=== PATIENT | female | born 1990 | race Caucasian/White ===

== ENCOUNTER 2016-11-05 12:31 | Outpatient (CLI) | payer OTHER | END 2016-11-05 23:59 | DX: Z34.83 Encounter for supervision of other normal pregnancy, third trimester (principal) ==

== ENCOUNTER 2016-11-11 09:17 | Outpatient (CLI) | payer OTHER | END 2016-11-11 11:35 | disposition home or self-care (01) | DX: O23.43 Unspecified infection of urinary tract in pregnancy, third trimester (principal); Z3A.35 35 weeks gestation of pregnancy ==

== ENCOUNTER 2016-12-09 05:25 | Inpatient (IN) | payer OTHER ==
[2016-12-09] MEDS ORDERED: fentaNYL 100 MCG/2 ML VIAL IVP PRN (06:56)
[2016-12-09] MEDS ORDERED: ONDANSETRON 4 MG/2 ML VIAL IVP PRN ×2 (06:56→17:47)
[2016-12-09] MEDS ORDERED: OXYTOCIN/LACTATED RINGERS 250 ML IV SCH (08:00)
[2016-12-09] MEDS: LACTATED RINGERS 1,000 ML IV SCH ×3 (10:23→20:46)
[2016-12-09] MEDS ORDERED: SODIUM CHLORIDE FLUSH 0.9% 10 ML SYRINGE IVP ONE (16:22)
[2016-12-09] MEDS ORDERED: NALOXONE 0.4 MG/ML VIAL IVP PRN (17:47)
[2016-12-09] MEDS ORDERED: diphenhydrAMINE INJ 50 MG/ML VIAL IVP PRN (17:47)
[2016-12-09] MEDS ORDERED: LACTATED RINGERS 500 ML IV ONE (17:47)
[2016-12-09] MEDS ORDERED: METOCLOPRAMIDE 10 MG/2 ML VIAL IVP PRN (17:47)
[2016-12-09] MEDS ORDERED: NALBUPHINE 20 MG/ML AMP IVP PRN (17:47)
[2016-12-09] MEDS ORDERED: ePHEDrine 50 MG/ML AMP IVP PRN (17:47)
[2016-12-09] MEDS ORDERED: SUFENTA/BUPIV 0.4 MCG/0.0625% EPIDURAL 150 ML EP PRN (17:47)
[2016-12-09] MEDS ORDERED: DINOPROSTONE 10 MG SUPP VG SCH (18:23)
[2016-12-09] MEDS ORDERED: METOCLOPRAMIDE 10 MG/2 ML VIAL IVP ONE (20:00)
[2016-12-09] MEDS ORDERED: ePHEDrine 50 MG/ML AMP IVP ONE (20:00)
[2016-12-09] MEDS ORDERED: LIDOCAINE-MPF 2% 5 ML VIAL IM ONE (20:00)
[2016-12-09] MEDS ORDERED: ONDANSETRON 4 MG/2 ML VIAL IVP ONE (20:00)
[2016-12-09] MEDS ORDERED: CARBOPROST TROMETHAMINE 250 MCG/ML AMP IM ONE (20:00)
[2016-12-09] MEDS ORDERED: fentaNYL 100 MCG/2 ML VIAL IVP ONE (20:00)
[2016-12-09] MEDS ORDERED: OXYTOCIN 10 UNIT/ML VIAL IV ONE (20:00)
[2016-12-09] MEDS ORDERED: MORPHINE PF 5 MG/10 ML AMP EP ONE (20:00)
[2016-12-09] MEDS ORDERED: PHENYLEPHRINE 10 MG/ML VIAL IV ONE (20:00)
[2016-12-09] MEDS ORDERED: ROPIVACAINE 0.2% PF 10 ML VIAL EPI ONE (20:00)
[2016-12-10] MEDS ORDERED: SUFENTA/BUPIV 0.4 MCG/0.0625% EPIDURAL 150 ML EP PRN (05:23)
[2016-12-10] MEDS: LACTATED RINGERS 1,000 ML IV SCH ×2 (06:30→18:18)
[2016-12-10] MEDS: AMPICILLIN 2 GM in SODIUM CHLORIDE 0.9% MINIBAG 100 ML IV SCH ×2 (08:12→14:44)
[2016-12-10] MEDS ORDERED: miSOPROStol 100 MCG TABLET VG ONE ×2 (08:30→13:02)
[2016-12-10] MEDS ORDERED: miSOPROStol 100 MCG TABLET ONE (12:11)
[2016-12-10] MEDS ORDERED: OXYTOCIN/LACTATED RINGERS 250 ML IV ONE (16:32)
[2016-12-10] MEDS ORDERED: LACTATED RINGERS 800 ML IV ONE (17:13)
[2016-12-10] MEDS ORDERED: TERBUTALINE 1 MG/ML VIAL SUBQ ONE ×2 (18:12→18:30)
[2016-12-10] MEDS ORDERED: CITRIC ACID/SODIUM CITRATE 15 ML UDC PO ONE ×2 (18:31→18:47)
[2016-12-10] MEDS ORDERED: ceFAZolin 2 GM/50 ML 50 ML IV ONE (19:00)
[2016-12-10] MEDS ORDERED: ONDANSETRON 4 MG/2 ML VIAL ONE (19:52)
[2016-12-10] MEDS ORDERED: LACTATED RINGERS 1,000 ML IV ONE (20:02)
[2016-12-10] MEDS ORDERED: KETOROLAC 30 MG/ML VIAL ONE (20:52)
[2016-12-10] MEDS ORDERED: MAGNESIUM HYDROXIDE 2,400 MG/30 ML UDC PO PRN (21:07)
[2016-12-11] MEDS: FUROSEMIDE 20 MG TABLET PO SCH ×3 (00:45→15:36)
[2016-12-11] MEDS: oxyCODONE 5 MG TABLET PO SCH ×5 (04:09→21:30)
[2016-12-11] MEDS: ACETAMINOPHEN 500 MG TABLET PO SCH ×3 (06:11→21:29)
[2016-12-11] MEDS: FLUoxetine 10 MG CAPSULE PO SCH (09:20)
[2016-12-11] MEDS: CELECOXIB 100 MG CAPSULE PO SCH ×2 (09:21→19:52)
[2016-12-11] MEDS: SIMETHICONE CHEW 80 MG TABLET PO PRN ×3 (09:21→21:30)
[2016-12-11] MEDS: DOCUSATE SODIUM 100 MG CAPSULE PO SCH ×2 (09:21→21:29)
[2016-12-11] MEDS: LACTATED RINGERS 1,000 ML IV SCH (12:16)
[2016-12-11] MEDS: OXYTOCIN/LACTATED RINGERS 250 ML IV SCH (19:23)
[2016-12-12] MEDS: LACTATED RINGERS 1,000 ML IV SCH (00:27)
[2016-12-12] MEDS: OXYTOCIN/LACTATED RINGERS 250 ML IV SCH (00:27)
[2016-12-12] MEDS: FUROSEMIDE 20 MG TABLET PO SCH ×2 (00:29→05:44)
[2016-12-12] MEDS: oxyCODONE 5 MG TABLET PO SCH ×8 (02:34→21:54)
[2016-12-12] MEDS: ACETAMINOPHEN 500 MG TABLET PO SCH ×3 (05:43→21:53)
[2016-12-12] MEDS: FLUoxetine 10 MG CAPSULE PO SCH (08:42)
[2016-12-12] MEDS: SIMETHICONE CHEW 80 MG TABLET PO PRN ×3 (08:42→17:49)
[2016-12-12] MEDS: DOCUSATE SODIUM 100 MG CAPSULE PO SCH ×2 (08:42→21:12)
[2016-12-12] MEDS: CELECOXIB 100 MG CAPSULE PO SCH ×2 (08:42→21:13)
[2016-12-13] MEDS: oxyCODONE 5 MG TABLET PO SCH ×2 (05:08→09:21)
[2016-12-13] MEDS: ACETAMINOPHEN 500 MG TABLET PO SCH (06:03)
[2016-12-13] MEDS: DOCUSATE SODIUM 100 MG CAPSULE PO SCH (09:20)
[2016-12-13] MEDS: SIMETHICONE CHEW 80 MG TABLET PO PRN (09:20)
[2016-12-13] MEDS: FLUoxetine 10 MG CAPSULE PO SCH (09:21)
[2016-12-13] MEDS: CELECOXIB 100 MG CAPSULE PO SCH (09:21)
== END 2016-12-13 10:00 | disposition home or self-care (01) | DRG 766 ==
PROC: 3E033VJ Introduction of Other Hormone into Peripheral Vein, Percutaneous Approach (ICD-10-PCS; 2016-12-09)
PROC: 10D00Z1 Extraction of Products of Conception, Low, Open Approach (ICD-10-PCS; principal; 2016-12-10 18:32)
DX: O61.0 Failed medical induction of labor (principal); Z3A.40 40 weeks gestation of pregnancy; Z37.0 Single live birth; Z87.891 Personal history of nicotine dependence; O99.344 Other mental disorders complicating childbirth; F41.9 Anxiety disorder, unspecified; F32.9 Major depressive disorder, single episode, unspecified; O75.89 Other specified complications of labor and delivery; O63.0 Prolonged first stage (of labor)